=== PATIENT | female | born 1990 | race Caucasian/White ===

== ENCOUNTER 2017-10-30 19:21 | Emergency (ER) | payer OTHER ==
[~2017-10-30] VITALS: Ht 162.6 cm; Wt 59.9 kg
[2017-10-30] MEDS ORDERED: AUGMENTIN400 MG/53 PO (21:07)
[2017-10-30 21:50] VITALS: BP 98/70
== END 2017-10-30 21:50 | disposition home or self-care (01) ==
LOC: ER 19:21
DX: O99.511 Diseases of the respiratory system complicating pregnancy, first trimester (principal); O98.811 Other maternal infectious and parasitic diseases complicating pregnancy, first trimester; Z3A.08 8 weeks gestation of pregnancy; J18.9 Pneumonia, unspecified organism; H66.92 Otitis media, unspecified, left ear; Z87.891 Personal history of nicotine dependence